=== PATIENT | female | born 1970 | race African-American/Black ===

== ENCOUNTER 2023-10-18 20:14 | Emergency (ER) | payer OTHER, SELFPAY ==
[2023-10-18 20:16] VITALS: BP 136/100
[2023-10-18 22:44] LABS: % Basophils 0.6 % (0-2); % Eosinophils 3.2 % (0-6); % Immature Granulocytes 0.1 % (0-0.5); % Lymphocytes 46.2 % (20.5-51.1); % Monocytes 9.4 % (1.7-9.3); % Neutrophils 40.5 % (42.2-75.2); Absolute Eosinophils 0.2 10^3/uL (0-0.7); Absolute Lymphocytes 3.1 10^3/uL (1.2-3.4); Absolute Monocytes 0.6 10^3/uL (0.1-0.6); Absolute Neutrophils 2.7 10^3/uL (1.4-6.5); Hemoglobin 12.5 g/dL (12.0-16.0); Mean Corp Hgb Conc. 35.7 g/dL (33.0-37.0); Mean Corpuscular Hgb 28.6 pg (27.0-31.0); Mean Corpuscular Volume 80.1 fL (81.0-99.0); Mean Platelet Volume 10.5 fL (7.4-10.4); Nucleated Red Blood Cells % 0 %; Platelet Count 247 10^3/uL (130-400); Red Blood Cell Count 4.37 10^6/uL (4.20-5.40); Red Cell Dist. Width 13.9 % (11.5-14.5); White Blood Cell Count 6.8 10^3/uL (4.8-10.8)
[2023-10-18 23:01] LABS: Blood Urea Nitrogen 23 mg/dl (7-17); Calcium 9.9 mg/dl (8.4-10.2); Carbon Dioxide 26 mmol/L (22-30); Chloride 102 mmol/L (98-107); Glucose 129 mg/dl (70-99); Potassium 4.3 mmol/L (3.5-5.1); Sodium 136 mmol/L (135-145); eGFR 49.17
--- NOTE | 2023-10-18 23:14 | ED.GENMED ---
History of Present Illness
General
Chief Complaint: Dental Problem
Source: patient
Time Seen by Provider: 10/18/23 21:22
Travel History
Have you had any contact with someone who has COVID-19?: No
Do you have any symptoms of coronavirus? Fever > 100 degrees, chills, cough, shortness of breath, sore throat, loss of taste or smell, muscle aches, or headache?: No
History of Present Illness
History of Present Illness:
53-year-old female with past medical history of hypertension, hyperlipidemia, chronic kidney disease, insulin-dependent diabetes presenting to the emergency department stating that she has been having dental issues for the better part of 10 years
but over the last few months the symptoms have gotten worse stating she has significant periodontal disease, cracked decayed to the left posterior lower jaw and dental abscesses. Patient has gone to various dentists and dental surgeons but she
states that she was told she needs at least $10,000 worth of treatment that her insurance will not cover and she does not have the money for this to pay [id number]. Patient has been on 4 separate antibiotics over the last month or so for dental
infections and she came to the ER [facility] with concern that she was septic due to having fevers (patient notes she has not had a fever greater than 100 but states that her normal temperature runs low so a temperature of 99 is a fever for her),
congestion, sore throat, shortness of breath, GI upset, fatigue, jaw pain, dental ache, difficulty eating, diminished p.o. intake. Patient states that she was doing research online and was concerned that she could potentially be septic which is [facility]
Past History
Past History
ED Past Medical History: Asthma, Fibromyalgia, HTN, Hypercholesterolemia, IDDM, Hypothyroidism, Psychiatric (PTSD, depression, Anxiety) and Other (IBS, Eczema, Glaucoma, Anemia, Hyperinsomnia, Arthritis, Retanopathy, )
ED Past Surgical History: Gynecological (Uterine polyp removed) and Other ( eye muscle repair, umbilical hernia repair, bilateral ear tube placements, wisdom teeth surgery, exploratory laparoscopy, and colonoscopy)
Social History
Tobacco: Non-smoker
Alcohol: None
Drug: None
Personal: Single
Living: with family
Employment: Employed
Family History
Family History: Other (Noncontributory)
Review of Systems
Review of Systems
All Other Systems: ROS reviewed and negative except as documented in HPI and ROS
Phy Exam
Physical Exam
Physical Exam:
GENERAL: Alert , in no apparent distress
EYE: conjunctiva clear
NECK: Supple, no significant adenopathy.
ENT: o/p clr, mmm. Dental cavities noted, cracked left posterior molar, no abscesses or fluctuance appreciated, tolerating secretions, no trismus, no drooling, no stridor
CARDIAC: Regular rate and rhythm, no murmurs
LUNGS: Clear breath sounds bilaterally, no acute respiratory distress, no wheezes/rales/rhonchi
NEUROLOGICAL: Alert and oriented
SKIN: Warm and dry, skin intact.
MUSCULOSKELETAL: well perfused.
PSYCH: Normal and appropriate interaction.
Scores
Heart Failure Risk
Heart Failure Risk Score: Not Applicable
Heart Score for Chest Pain Patients
STEMI patient?: Not applicable
Withdrawal Assessment of Alcohol
Withdrawal Assessment Completed?: Not applicable
Course
Orders/Labs/Results
Orders:
Orders
10/18/23 22:33
Basic Metabolic Panel Urgent
Complete Blood Count/With Diff Urgent
Blood Culture Q30M
ANA Source: Blood/Venous
Specimen Description:
Blood Culture Q30M
ANA Source: Blood/Venous
Specimen Description:
10/18/23 23:17
Acetaminophen with Codeine [Tylenol #3] 1 tablet PO NOW STA
10/18/23 23:26
Urinalysis Reflex To Culture Urgent
Date Specimen was Collected: 10/18/23
Time Specimen was Collected: 23:21
Urine Microscopic Reflex Cult Urgent
Urine Culture Urgent
ANA Source: U
Specimen Description:
Date Specimen was Collected: 10/18/23
Time Specimen was Collected: 23:21
Abnormal Lab Results
10/18/23 10/18/23
22:33 23:26
Hct 35.0 L %
(37.0-47.0)
MCV 80.1 L fL
(81.0-99.0)
MPV 10.5 H fL
(7.4-10.4)
Neutrophils % 40.5 L %
(42.2-75.2)
Monocytes % 9.4 H %
(1.7-9.3)
BUN 23 H mg/dl
(7-17)
Creatinine 1.3 H mg/dL
(0.6-1.0)
Glucose 129 H mg/dl
(70-99)
Leukocyte Esterase Rfl Trace A
(Negative)
Urine WBC (Reflex) 11-15 A /HPF
(0-5)
Urine Bacteria (Reflex) Few A
(Negative)
10/18/23 22:33
10/18/23 22:33
Vital Signs
Initial and Last Documented VS:
Initial Vital Signs
Temp Pulse Resp BP Pulse Ox
98.3 F 100 24 136/100 96
10/18/23 20:16 10/18/23 20:16 10/18/23 20:16 10/18/23 20:16 10/18/23 20:16
Last Documented Vital Signs
Temp Pulse Resp BP Pulse Ox
98 F 78 16 145/72 98
10/18/23 23:23 10/18/23 23:23 10/18/23 23:23 10/18/23 23:23 10/18/23 23:23
MDM/Problems Addressed
Differential Diagnosis Includes:
Chronic dental pain, I do not have concern for sepsis nor other potential infectious causes such as endocarditis
MDM/Problems Addressed:
53-year-old female presenting to the emergency department for evaluation of chronic dental pain but patient's biggest concern is the potential for sepsis given her symptoms over the last few months. Patient is afebrile here and she admits to not
having any temperatures greater than 100 so patient has not had any fevers during this time. Patient is hemodynamically stable and in no acute distress. She does have dental disease however I explained to patient that I am unable to treat this in
the emergency department and do not have dentist present here. She has been on 4 separate antibiotics include amoxicillin, Augmentin, Keflex and another antibiotic that the patient cannot remember and this was all in a very short period of time. I
do not feel prescribing the patient another antibiotic is advantageous given concern this could possibly cause C. difficile colitis or cause any other antibiotic associated complication and I explained this to the patient. I did offer the patient a
case management consultation to see if they would be able to help her with any other dentist within the area however patient states she is already contacted our dental clinic here and various other dentists and has been met with a lot of resistance.
I explained to patient that we can check lab work including blood cultures and a urinalysis as she states she had a little bit of cloudy urine on Friday but that outside of this I did not think there needed to be any further emergency department
work up.
*Pulse Oximetry
Patient hypoxic: no
*Critical Care Note
Total Time (30-74mins, 75-104mins- exclusive of procedures): Not Applicable
Data Reviewed
Review of Other/Old Records Reveals: Labs and Records
Source: patient
Patient Management
Escalation/DeEscalation of care consider admission/obs:
Patient's lab work is all reassuring. Her creatinine is stable and at her baseline. Patient's urine does have 11-15 WBCs however there is increased squamous cells and bacteria likely signifying contamination. Culture is being sent. Patient will
be contacted if there is any abnormalities on the urine culture. I provided her with information for dental follow-up. At this time I do not suspect any emergent pathologies and that patient is stable for discharge home.
ED Attending Note
-
Portions of this chart may have been created with voice recognition software.� Occasional wrong word or��sound alike� substitutions may have occurred due to the inherent limitations of voice recognition software.
Discharge Plan
Departure
Patient Disposition: Home (Routine Discharge)
Date of Disposition: 10/18/23
Time of Disposition: 23:54
Patient with high blood pressure during this ER visit?: Yes
Discharge Problem:
Dentalgia
Instructions: Dental Pain (DC)
Prescriptions:
New
acetaminophen-codeine 300-30 mg Tablet
1 tab PO Q4HPRN PRN (Reason: pain) Qty: 6 0RF
No Action
atorvastatin 40 MG tablet
40 mg PO QPM
dextroamphetamine-amphetamine 10 MG tablet
10 mg PO TID
Patient Comments:
patient last picked up on 07/28/20 #90
docusate sodium 100 MG capsule
100 mg PO BIDPRN PRN (Reason: consitpation)
albuterol sulfate 1 PUFF HFA aerosol inhaler
1 puff inhalation R Q4HPRN PRN (Reason: sob)
fluticasone propionate 1 SPRAY spray,suspension
1 spray intranasal DAILYPRN PRN (Reason: ear clogs)
multivitamin with folic acid [Tab-A-Mavis] 1 TABLET tablet
1 tab PO DAILY
calcium carbonate-vitamin D3 [Oyster Shell Calcium-Vit D3] 500 MG tablet
1 tab PO DAILY
psyllium husk [Metamucil] 0.4 GM capsule
0.4 gm PO DAILY
levothyroxine [Synthroid] 50 mcg Tablet
50 mcg PO DAILY
Patient Comments:
02/12/22-- mentioned new dose for her
lisinopril 20 mg Tablet
20 mg PO DAILY
prazosin 5 mg capsule
5 mg PO HS
Patient Comments:
02/12/22--new dose as of 01/2022 as per patient
montelukast 10 mg tablet
10 mg PO QPM
furosemide [Lasix] 20 mg Tablet
20 mg PO DAILY
gabapentin 100 mg capsule
100 mg PO TIDPRN PRN (Reason: nerve pain)
insulin lispro [Admelog SoloStar U-100 Insulin] 100 unit/mL Insulin Pen
0 sliding scale dose SC MEALS
pregabalin 50 mg capsule
50 mg PO BID
cholecalciferol (vitamin D3) [Vitamin D3] 25 mcg (1,000 unit) Tablet
25 mcg PO DAILY
Collagen 1500 Plus C 500 mg-800 mcg- 50 mg Capsule
1 cap PO DAILY
fluoxetine 40 mg capsule
40 mg PO DAILY
Patient Comments:
02/12/22---patient said she only taking 40mg daily and stopped capyta 42mg daily
Trelegy Ellipta 200-62.5-25 mcg blister with device
1 ea INHALATION R DAILY
Viibryd
10 mg PO DAILY
Myrbetriq 50 mg Tablet Extended Release 24 Hr
50 mg PO DAILY
bismuth subsalicylate 262 mg/15 mL Suspension
524 mg PO ONCE PRN (Reason: Diarrhea)
insulin degludec [Tresiba FlexTouch U-100] 100 UNIT/ML insulin pen
22 unit SQ DAILY Qty: 0 0RF
Patient Comments:
02/12/22--recently decrease to 18units
loperamide [Imodium A-D] 2 mg capsule
2 mg PO TID PRN (Reason: Diarrhea) Qty: 60 0RF
Referrals:
Angella Mccullough MD [Family Provider] -
Venice Yoon DDS [Active] - (Oral Surgery)
Interventions
Interventions:
*Risk Screen - Suicide Last Done: 10/18/23 20:16
*Neglect/Abuse Screening Last Done: 10/18/23 20:16
*Nursing Disposition Last Done: 10/19/23 00:25
Discharge Date and Time
Print Language: CAMBODIAN
[2023-10-18 23:23] VITALS: BP 145/72
[2023-10-18 23:35] LABS: Urine Albumin Negative (Neg - Trace); Urine Bilirubin Negative (Negative); Urine Character Clear (Clear); Urine Color Yellow; Urine Glucose Negative (Negative); Urine Ketone Negative (Negative); Urine Leukocyte Trace (Negative); Urine Nitrite Negative (Negative); Urine Occult Blood Negative (Negative); Urine Urobilinogen Negative (Neg - 1+)
[2023-10-19 00:42] LABS: Urine Bacteria Few (Negative); Urine Red Blood Cell 0-2 /HPF (0-2); Urine Squamous Cell 16-20 /LPF (Few)
== END 2023-10-19 01:12 | disposition home or self-care (01) ==
LOC: EMR 20:14
PROVIDERS: Physician Assistant Medical; EMERGENCY PHYSICIAN Emergency Medicine; FAMILY PHYSICIAN Family Medicine
DX: K08.89 Other specified disorders of teeth and supporting structures (principal); K02.9 Dental caries, unspecified; K03.81 Cracked tooth; I12.9 Hypertensive chronic kidney disease with stage 1 through stage 4 chronic kidney disease, or unspecified chronic kidney disease; E11.22 Type 2 diabetes mellitus with diabetic chronic kidney disease; N18.9 Chronic kidney disease, unspecified; E78.00 Pure hypercholesterolemia, unspecified; E03.9 Hypothyroidism, unspecified; F41.9 Anxiety disorder, unspecified; F32.A Depression, unspecified; F43.10 Post-traumatic stress disorder, unspecified; G89.29 Other chronic pain; H40.9 Unspecified glaucoma; J45.909 Unspecified asthma, uncomplicated; K58.9 Irritable bowel syndrome, unspecified; M19.90 Unspecified osteoarthritis, unspecified site; M79.7 Fibromyalgia; D64.9 Anemia, unspecified; Z79.4 Long term (current) use of insulin; Z88.1 Allergy status to other antibiotic agents; Z88.8 Allergy status to other drugs, medicaments and biological substances
CPT/HCPCS: 99283; 80048; 81003; 81015; 85025; 87040; 87086

== ENCOUNTER 2023-11-26 23:27 | Emergency (ER) | payer OTHER, SELFPAY ==
[2023-11-26 23:33] VITALS: BP 132/82
--- NOTE | 2023-11-27 00:14 | ED.GENMED ---
History of Present Illness
General
Chief Complaint: Urinary Symptoms
Source: patient
Exam Limitations: none
Time Seen by Provider: 11/26/23 23:42
History of Present Illness
History of Present Illness:
Patient with 2 complaints. Shortness of breath especially with exertion progressive over days but has been intermittent for a long time. This is not associated with chest pressure nausea diaphoresis. No symptoms at rest. Secondly patient is
concerned she may have a kidney stone. She passed a small clot or stone. She has had some cloudy urine. She self catheterizes. No fever. No flank or back pain.
Past History
Past History
ED Past Medical History: Asthma, Fibromyalgia, HTN, Hypercholesterolemia, IDDM, Hypothyroidism, Psychiatric (PTSD, depression, Anxiety) and Other (IBS, Eczema, Glaucoma, Anemia, Hyperinsomnia, Arthritis, Retanopathy, )
ED Past Surgical History: Gynecological (Uterine polyp removed) and Other ( eye muscle repair, umbilical hernia repair, bilateral ear tube placements, wisdom teeth surgery, exploratory laparoscopy, and colonoscopy)
Social History
Tobacco: Non-smoker
Alcohol: None
Drug: None
Personal: Single
Living: with family
Employment: Employed
Family History
Family History: Other (Noncontributory)
Review of Systems
Review of Systems
All Other Systems: Not applicable
Constitutional: Denies fever or chills
Cardiac: Denies chest pain or syncope
Phy Exam
Physical Exam
Physical Exam:
GENERAL: Alert and oriented in no apparent distress
EYE: Orbits normal.
NECK: Supple
CARDIAC: Regular rate and rhythm without any obvious murmurs.
LUNGS: Clear breath sounds,normal
ABDOMEN: Soft, without focal tenderness or distention. No CVA tenderness
NEUROLOGICAL: Alert and oriented , grossly non-focal
SKIN: Warm and dry, no rash or lesion, no discoloration, skin intact.
MUSCULOSKELETAL: No edema,no deformity.Good color
PSYCH: Normal and appropriate interaction.
Course
Orders/Labs/Results
Orders:
Orders
11/27/23 00:03
Electrocardiogram (*1) Stat
Reason for Study: Other
Other Reason for Exam: chest pain
CT Abd/pel Without Iv Or Oral Urgent
Comment:
Reason For Exam: Possible kidney stone
EKG- Treatment ONCE
IV Insert/Care/Rem.- Treatment PRN
Pulse Ox/cont/shift [RESP] Stat
Quantity: 1
11/27/23 00:10
Basic Metabolic Panel Urgent
Complete Blood Count/With Diff Urgent
D-Dimer Urgent
Troponin I Urgent
11/27/23 00:54
CXR2 [CR Chest - 2 Views ] Urgent
Comment:
Reason For Exam: SOB
11/27/23 00:55
US Periph Venous LOWER Ext Maurilio Urgent
Comment:
Reason For Exam: Short of breath/positive dimer
11/27/23 02:05
Urinalysis Reflex To Culture Urgent
Date Specimen was Collected: 11/27/23
Time Specimen was Collected: 02:04
Urine Microscopic Reflex Cult Urgent
11/27/23 02:22
NM Lung Scan Vent/perf Urgent
Comment:
Reason For Exam: sob. poss dimer. renal insuff,
11/27/23 02:29
CefTRIAXone [Rocephin] 1,000 mg IV NOW STA
Abnormal Lab Results
11/27/23 11/27/23 11/27/23
00:10 02:05 02:28
MPV 10.8 H fL
(7.4-10.4)
Absolute Monos (auto) 0.7 H 10^3/uL
(0.1-0.6)
D-Dimer 0.93 H ug/mlFEU
(0.00-0.50)
Sodium 132 L mmol/L
(135-145)
BUN 26 H mg/dl
(7-17)
Creatinine 1.6 H mg/dL
(0.6-1.0)
Glucose 234 H mg/dl
(70-99)
Leukocyte Esterase Rfl Trace A
(Negative)
Urine Bacteria (Reflex) Few A
(Negative)
POC Glucose 242 H mg/dl
(70-99)
11/27/23 00:10
11/27/23 00:10
Vital Signs
Initial and Last Documented VS:
Initial Vital Signs
Temp Pulse Resp BP Pulse Ox
97.8 F 108 16 132/82 97
11/26/23 23:33 11/26/23 23:33 11/26/23 23:33 11/26/23 23:33 11/26/23 23:33
Last Documented Vital Signs
Temp Pulse Resp BP Pulse Ox
97.8 F 78 16 150/113 97
11/26/23 23:33 11/27/23 02:26 11/27/23 02:26 11/27/23 11:21 11/27/23 11:45
MDM/Problems Addressed
Differential Diagnosis Includes:
Patient with 2 discrete complaints. Shortness of breath and shortness of breath with exertion over days and intermittently for longer. Nothing significant by exam. Lungs are clear. Heart regular rate and rhythm. No murmur. No heart failure
clinically. Doubt pulmonary emboli. Low risk. Will do D-dimer. Cardiac testing. Problem 2 is the possible kidney stone and possible UTI. Patient self catheterizes. Urinalysis pending. CT scan to evaluate for kidney stone.
*Radiology
Radiology exam reviewed: preliminary read by ED provider (Negative chest x-ray.) and radiology read reviewed (Bladder wall thickening by CT. No obstructing stone. Ultrasounds of the legs are negative.)
*Pulse Oximetry
Patient hypoxic: no
*EKG
Interpreted by ED Provider?: Yes
Interpretation: abnormal
Heart Rate: 59
Rate: bradycardiac
Rhythm: sinus
[place]: left axis deviation
Interval: normal interval
QRS Pattern: normal QRS
Ischemia: T-wave inversion
*Critical Care Note
Total Time (30-74mins, 75-104mins- exclusive of procedures): Not Applicable
Data Reviewed
Review of Other/Old Records Reveals: Labs, Records and Testing
Update Note
Update Note:
Awaiting urinalysis. Suspect positive. Will treat for UTI. As for the shortness of breath issues she has had ongoing, D-dimer is positive. I suspect that false positives. She is in no respiratory distress she is not hypoxic. She is not
tachypneic. She has negative leg ultrasounds. She does have a GFR in the 30s. We will get a nuclear scan in the morning. Low risk will discharge to follow-up from a respiratory standpoint
ED Attending Note
-
Portions of this chart may have been created with voice recognition software.� Occasional wrong word or��sound alike� substitutions may have occurred due to the inherent limitations of voice recognition software.
Discharge Plan
Departure
Patient Disposition: Home (Routine Discharge)
Date of Disposition: 11/27/23
Time of Disposition: 11:35
Patient with high blood pressure during this ER visit?: Yes
Discharge Problem:
UTI, Dyspnea with exertion, History of asthma
Instructions: Urinary Tract Infection, Adult (DC), Shortness of Breath, Adult ED, BLOOD PRESSURE
Prescriptions:
New
prednisone 20 mg tablet
20 mg PO DAILY Qty: 5 0RF
cefdinir 300 mg capsule
300 mg PO BID 7 Days Qty: 14 0RF
prednisone 5 mg tablet
5 mg PO DAILY Qty: 5 0RF
No Action
atorvastatin 40 MG tablet
40 mg PO QPM
dextroamphetamine-amphetamine 10 MG tablet
10 mg PO TID
Patient Comments:
patient last picked up on 07/28/20 #90
docusate sodium 100 MG capsule
100 mg PO BIDPRN PRN (Reason: consitpation)
albuterol sulfate 1 PUFF HFA aerosol inhaler
1 puff inhalation R Q4HPRN PRN (Reason: sob)
fluticasone propionate 1 SPRAY spray,suspension
1 spray intranasal DAILYPRN PRN (Reason: ear clogs)
multivitamin with folic acid [Tab-A-Mavis] 1 TABLET tablet
1 tab PO DAILY
calcium carbonate-vitamin D3 [Oyster Shell Calcium-Vit D3] 500 MG tablet
1 tab PO DAILY
psyllium husk [Metamucil] 0.4 GM capsule
0.4 gm PO DAILY
levothyroxine [Synthroid] 50 mcg Tablet
50 mcg PO DAILY
Patient Comments:
02/12/22-- mentioned new dose for her
lisinopril 20 mg Tablet
20 mg PO DAILY
prazosin 5 mg capsule
5 mg PO HS
Patient Comments:
02/12/22--new dose as of 01/2022 as per patient
montelukast 10 mg tablet
10 mg PO QPM
furosemide [Lasix] 20 mg Tablet
20 mg PO DAILY
gabapentin 100 mg capsule
100 mg PO TIDPRN PRN (Reason: nerve pain)
insulin lispro [Admelog SoloStar U-100 Insulin] 100 unit/mL Insulin Pen
0 sliding scale dose SC MEALS
pregabalin 50 mg capsule
50 mg PO BID
cholecalciferol (vitamin D3) [Vitamin D3] 25 mcg (1,000 unit) Tablet
25 mcg PO DAILY
Collagen 1500 Plus C 500 mg-800 mcg- 50 mg Capsule
1 cap PO DAILY
fluoxetine 40 mg capsule
40 mg PO DAILY
Patient Comments:
02/12/22---patient said she only taking 40mg daily and stopped capyta 42mg daily
Trelegy Ellipta 200-62.5-25 mcg blister with device
1 ea INHALATION R DAILY
Viibryd
10 mg PO DAILY
Myrbetriq 50 mg Tablet Extended Release 24 Hr
50 mg PO DAILY
bismuth subsalicylate 262 mg/15 mL Suspension
524 mg PO ONCE PRN (Reason: Diarrhea)
insulin degludec [Tresiba FlexTouch U-100] 100 UNIT/ML insulin pen
22 unit SQ DAILY Qty: 0 0RF
Patient Comments:
02/12/22--recently decrease to 18units
loperamide [Imodium A-D] 2 mg capsule
2 mg PO TID PRN (Reason: Diarrhea) Qty: 60 0RF
acetaminophen-codeine 300-30 mg Tablet
1 tab PO Q4HPRN PRN (Reason: pain) Qty: 6 0RF
Referrals:
Karrie Gerardo CRNP [Family Provider] - Follow up in 2-3 days
Activity Restrictions/Additional Instructions:
Antibiotics as directed for UTI. This can be started in 24 hours
Prednisone as directed
Close follow-up with your primary physician and maintenance groundman for your shortness of breath
Your prescription was sent to your pharmacy
VQ scan shows no sign of blood clot in the lungs
Interventions
Interventions:
*Risk Screen - Suicide Last Done: 11/27/23 00:12
*General Assessment Last Done: 11/26/23 23:33
*Neglect/Abuse Screening Last Done: 11/27/23 00:12
ED- Fall Risk Assessment Last Done: 11/27/23 12:40
*Nursing Disposition Last Done: 11/27/23 12:40
ED-Female Genitourinary Assessment Last Done: 11/27/23 00:12
Discharge Date and Time
Discharge Date/Time: 11/27/23 12:41
Print Language: GIBRALTARIAN
[2023-11-27 00:33] LABS: Blood Urea Nitrogen 26 mg/dl (7-17); Calcium 10.1 mg/dl (8.4-10.2); Carbon Dioxide 27 mmol/L (22-30); Chloride 98 mmol/L (98-107); Glucose 234 mg/dl (70-99); Potassium 4.5 mmol/L (3.5-5.1); Sodium 132 mmol/L (135-145); eGFR 38.33
[2023-11-27 00:39] LABS: D-Dimer 0.93 ug/mlFEU (0.00-0.50)
[2023-11-27 00:45] VITALS: BP 142/94
[2023-11-27 00:51] LABS: % Basophils 0.6 % (0-2); % Eosinophils 3.2 % (0-6); % Immature Granulocytes 0.4 % (0-0.5); % Lymphocytes 33.9 % (20.5-51.1); % Monocytes 9.3 % (1.7-9.3); % Neutrophils 52.6 % (42.2-75.2); Absolute Eosinophils 0.2 10^3/uL (0-0.7); Absolute Lymphocytes 2.4 10^3/uL (1.2-3.4); Absolute Monocytes 0.7 10^3/uL (0.1-0.6); Absolute Neutrophils 3.8 10^3/uL (1.4-6.5); Hematocrit 37.5 % (37.0-47.0); Hemoglobin 13.2 g/dL (12.0-16.0); Mean Corp Hgb Conc. 35.2 g/dL (33.0-37.0); Mean Corpuscular Hgb 29.1 pg (27.0-31.0); Mean Corpuscular Volume 82.6 fL (81.0-99.0); Mean Platelet Volume 10.8 fL (7.4-10.4); Nucleated Red Blood Cells % 0 %; Platelet Count 241 10^3/uL (130-400); Red Blood Cell Count 4.54 10^6/uL (4.20-5.40); Red Cell Dist. Width 13.7 % (11.5-14.5); White Blood Cell Count 7.2 10^3/uL (4.8-10.8)
[2023-11-27 00:53] LABS: Troponin I 0.017 ng/ml
[2023-11-27 02:11] LABS: Urine Albumin Negative (Neg - Trace); Urine Bilirubin Negative (Negative); Urine Character Clear (Clear); Urine Color Yellow; Urine Glucose Negative (Negative); Urine Ketone Negative (Negative); Urine Leukocyte Trace (Negative); Urine Nitrite Negative (Negative); Urine Occult Blood Negative (Negative); Urine Specific Gravity 1.015 (<1.030); Urine Urobilinogen Negative (Neg - 1+)
[2023-11-27 02:26] VITALS: BP 138/88
[2023-11-27 02:30] LABS: Glucose - Point of Care 242 mg/dl (70-99)
[2023-11-27 03:21] LABS: Urine Bacteria Few (Negative); Urine Red Blood Cell 0-2 /HPF (0-2); Urine Squamous Cell 0-2 /LPF (Few)
[2023-11-27] MEDS: ROCEPHIN 1000 MG IV (03:21)
[2023-11-27 11:21] VITALS: BP 150/113
== END 2023-11-27 12:41 | disposition home or self-care (01) ==
LOC: EMR 23:27
PROVIDERS: EMERGENCY PHYSICIAN Emergency Medicine; FAMILY PHYSICIAN Nurse Practitioner Family
DX: N39.0 Urinary tract infection, site not specified (principal); R06.00 Dyspnea, unspecified; J45.909 Unspecified asthma, uncomplicated; M79.7 Fibromyalgia; I10 Essential (primary) hypertension; E78.00 Pure hypercholesterolemia, unspecified; E11.9 Type 2 diabetes mellitus without complications; E03.9 Hypothyroidism, unspecified; F43.10 Post-traumatic stress disorder, unspecified; F41.8 Other specified anxiety disorders; K58.9 Irritable bowel syndrome, unspecified; H40.9 Unspecified glaucoma; M19.90 Unspecified osteoarthritis, unspecified site; Z87.440 Personal history of urinary (tract) infections
CPT/HCPCS: 99284; 71046; 74176; 78582; 80048; 81003; 81015; 82962; 84484; 85025; 85379; 93005; 93970; A9540; A9567

== ENCOUNTER → 2024-09-13 19:02 | Outpatient (REF) | payer OTHER, SELFPAY | LOC: RAD 19:02 | PROVIDERS: ATTENDING PHYSICIAN Nurse Practitioner Family | DX: M54.50 Low back pain, unspecified (principal) | CPT/HCPCS: 72110 ==

== ENCOUNTER 2024-12-19 23:27 | Emergency (ER) | payer OTHER, SELFPAY ==
[2024-12-19 23:28] VITALS: BP 137/87
[2024-12-19 23:46] LABS: Hematocrit 41.7 % (37.0-47.0); Hemoglobin 14.4 g/dL (12.0-16.0); Mean Corp Hgb Conc. 34.5 g/dL (33.0-37.0); Mean Corpuscular Volume 81.8 fL (81.0-99.0); Nucleated Red Blood Cells % 0 %; Platelet Count 266 10^3/uL (130-400); Red Cell Dist. Width 13.3 % (11.5-14.5)
[2024-12-20 00:05] LABS: ALT (SGPT) 29 U/L (0-35); AST (SGOT) 31 U/L (14-36); Albumin 4.6 g/dl (3.5-5.0); Alkaline Phosphatase 132 U/L (38-126); Blood Urea Nitrogen 18 mg/dl (7-17); Calcium 11.2 mg/dl (8.4-10.2); Carbon Dioxide 26 mmol/L (22-30); Chloride 102 mmol/L (98-107); Glucose 152 mg/dl (70-99); Potassium 5.2 mmol/L (3.5-5.1); Sodium 133 mmol/L (135-145); Total Protein 7.9 g/dl (6.3-8.2); eGFR 48.87
[2024-12-20 03:53] VITALS: BP 148/94
--- NOTE | 2024-12-20 03:53 | ED.GENMED ---
History of Present Illness
General
Chief Complaint: Dehydration Symptoms
Source: patient and ambulance crew
Exam Limitations: none
Time Seen by Provider: 12/20/24 03:31
Nursing documentation reviewed up to this point in time: agreed with
History of Present Illness
History of Present Illness:
This is a 54-year-old woman with history of insulin-dependent diabetes, hypertension, fibromyalgia, asthma, hypothyroidism, PTSD/anxiety, IBS, chronic kidney disease.
She presents via EMS after developing what she states is 'dehydration symptoms' while shopping at a local grocery store. She was about to check out when she began to feel lightheaded, jittery, felt that she was going to pass out. She states
similar episodes happen generally once per month and when she is at home she just lies down and drinks water and symptoms resolved. She was able to sit down but unable to lie flat in the grocery store. She was given water with improvement in
symptoms but continued with mild lightheadedness, jitteriness thus EMS was notified. Upon EMS arrival patient noted to be hypotensive at 80/50 and blood sugar borderline low at 70. She denies chest pain, no cough no shortness of breath. Upon
arrival to the ED she was given juice to drink and symptoms completely resolved. She has had no return of symptoms.
No recent change in medications.
She does have a CGM at home but has not been using this. She admits that her blood sugars have been quite erratic.
Blood pressure 137/87 upon arrival to the ED.
Past History
Past History
ED Past Medical History: Asthma, Fibromyalgia, HTN, Hypercholesterolemia, IDDM, Hypothyroidism, Psychiatric (PTSD, depression, Anxiety) and Other (IBS, Eczema, Glaucoma, Anemia, Hyperinsomnia, Arthritis, Retanopathy, )
ED Past Surgical History: Gynecological (Uterine polyp removed) and Other ( eye muscle repair, umbilical hernia repair, bilateral ear tube placements, wisdom teeth surgery, exploratory laparoscopy, and colonoscopy)
Social History
Tobacco: Non-smoker
Alcohol: None
Drug: None
Personal: Single
Living: with family
Employment: Employed
Family History
Family History: Other (Noncontributory)
Phy Exam
Physical Exam
Physical Exam:
GENERAL: Alert , in no apparent distress 54-year-old woman appears somewhat older than stated age, she is bright and alert, pleasant, easily communicative and in no acute distress.
EYE: anicteric
NECK: Supple, nontender, no meningismus, no significant adenopathy.
ENT: Facemask in place.
CARDIAC: Regular rate and rhythm. no murmur.
LUNGS: Clear breath sounds bilaterally, no acute respiratory distress, no wheezes/rales/rhonchi
ABDOMEN: Soft, nondistended, without focal tenderness,normoactive BS.
NEUROLOGICAL: Alert and oriented x3, no focal neuro deficits. Gait is steady.
SKIN: Warm and dry, normal color, skin intact. No rash.
MUSCULOSKELETAL: No C/C/E. peripheral pulses are full and equal b/l. No palpable tenderness.
PSYCH: Normal and appropriate interaction.
Course
Orders/Labs/Results
Orders:
Orders
12/19/24 23:37
Complete Blood Count/With Diff Urgent
Comprehensive Metabolic Panel Urgent
12/20/24 03:33
Electrocardiogram (*1) Urgent
Reason for Study: Fatigue / Weakness
EKG- Treatment ONCE
Abnormal Lab Results
12/19/24
23:37
MPV 10.5 H fL
(7.4-10.4)
Sodium 133 L mmol/L
(135-145)
Potassium 5.2 H mmol/L
(3.5-5.1)
BUN 18 H mg/dl
(7-17)
Creatinine 1.3 H mg/dL
(0.6-1.0)
Glucose 152 H mg/dl
(70-99)
Calcium 11.2 H mg/dl
(8.4-10.2)
Alkaline Phosphatase 132 H U/L
(38-126)
12/19/24 23:37
12/19/24 23:37
Vital Signs
Initial and Last Documented VS:
Initial Vital Signs
Temp Pulse Resp BP Pulse Ox
98.3 F 83 16 137/87 99
12/19/24 23:28 12/19/24 23:28 12/19/24 23:28 12/19/24 23:28 12/19/24 23:28
Last Documented Vital Signs
Temp Pulse Resp BP Pulse Ox
98.3 F 78 14 152/89 99
12/19/24 23:28 12/20/24 04:00 12/20/24 04:00 12/20/24 04:00 12/20/24 04:09
MDM/Problems Addressed
Differential Diagnosis Includes:
Concern for orthostasis, vasovagal episode, arrhythmia, hypoglycemia.
Symptoms have promptly resolved after fluids and consuming juice.
Highly suspect an element of hypoglycemia.
Labs are unremarkable save for minimally elevated potassium of 5.2. Creatinine of 1.3 at her baseline. Glucose 155. Normal CBC.
She remains normotensive.
Due to mild hyperkalemia, will check EKG.
Patient is eager to be discharged to home.
Chronic conditions affecting care: DM, HTN, Psychiatric illness and Kidney disease
Acute Exacerbation and/or Progression of Chronic Illness: DM and Other (Concern for orthostatic hypotension)
*Pulse Oximetry
SaO2: 99
Oxygen Mode of Delivery: Room air
Patient hypoxic: no
*EKG
Interpreted by ED Provider?: Yes
Interpretation: normal
Comparison EKG: no changes (Unchanged from previous November 27, 2023)
Rate: normal
Rhythm: sinus
Momence: normal axis
Interval: normal interval
QRS Pattern: normal QRS
Ischemia: no ischemia
*Chlorine Plant Operator Interpretation
Rate: normal
Interpretation: normal
Rhythm: sinus
*Critical Care Note
Total Time (30-74mins, 75-104mins- exclusive of procedures): Not Applicable
ED Attending Note
-
Portions of this chart may have been created with voice recognition software.� Occasional wrong word or��sound alike� substitutions may have occurred due to the inherent limitations of voice recognition software.
Discharge Plan
Departure
Patient Disposition: Home (Routine Discharge)
Date of Disposition: 12/20/24
Time of Disposition: 03:53
Patient with high blood pressure during this ER visit?: No
Condition: Good
Discharge Problem:
Near syncope, Hypoglycemia
Instructions: Low blood sugar in people with diabetes, Near Fainting (DC)
Prescriptions:
No Action
atorvastatin 40 MG tablet
40 mg PO QPM
dextroamphetamine-amphetamine 10 MG tablet
10 mg PO TID
albuterol sulfate 1 PUFF HFA aerosol inhaler
1 puff inhalation R Q4HPRN PRN (Reason: sob)
calcium carbonate-vitamin D3 [Oyster Shell Calcium-Vit D3] 500 MG tablet
1 tab PO DAILY
montelukast 10 mg tablet
10 mg PO DAILY
furosemide [Lasix] 20 mg Tablet
20 mg PO DAILYPRN PRN (Reason: fluid retention/swelling)
gabapentin 100 mg capsule
100 mg PO DAILYPRN PRN (Reason: nerve pain)
insulin lispro [Admelog SoloStar U-100 Insulin] 100 unit/mL Insulin Pen
0 sliding scale dose SC MEALS
pregabalin 50 mg capsule
50 mg PO BID
Trelegy Ellipta 200-62.5-25 mcg blister with device
1 ea INHALATION R DAILY
multivitamin Tablet
1 tab PO DAILY
tolterodine 4 mg Capsule,Extended Release 24hr
4 mg PO DAILY
sertraline 100 mg Tablet
200 mg PO DAILY
levothyroxine 75 mcg Tablet
75 mcg PO DAILY
methenamine hippurate 1 gram Tablet
1 g PO BID
Patient Comments:
pt usually takes daily, supposed to be BID
lisinopril 10 mg Tablet
10 mg PO DAILY
lansoprazole 30 mg Capsule,Delayed Release(Dr/Ec)
30 mg PO DAILY
dicyclomine 10 mg Capsule
10 mg PO QID PRN (Reason: IBS)
insulin glargine [Lantus Solostar U-100 Insulin] 100 unit/mL (3 mL) Insulin Pen
18 unit SC DAILY
glucosamine HCl 1,500 mg Tablet
1,500 mg PO DAILY
Benefiber (guar gum)
1 tab PO DAILY
Probiotic
1 cap PO DAILY
biotin
1 tab PO DAILY
Referrals:
UNKNOWN - PT DOES,NOT KNOW [Family Provider]
Activity Restrictions/Additional Instructions:
Restart your continuous glucose monitor.
Stay well-hydrated on a daily basis.
Follow-up with your primary care physician this week for recheck.
Interventions
Interventions:
*Risk Screen - Suicide Last Done: 12/19/24 23:28
*General Assessment Last Done: 12/19/24 23:28
*Neglect/Abuse Screening Last Done: 12/19/24 23:28
*ED- Fall Risk Assessment Last Done: 12/20/24 03:55
*Nursing Disposition Last Done: 12/20/24 04:17
ED- Cardiac Assessment Last Done: 12/20/24 04:12
ED- Neurological Assessment Last Done: 12/20/24 04:12
ED- Pulmonary Assessment Last Done: 12/20/24 04:12
Discharge Date and Time
Discharge Date/Time: 12/20/24 04:17
Print Language: BURMESE
[2024-12-20 03:54] VITALS: BMI 25.9
[2024-12-20 04:00] VITALS: BP 152/89
== END 2024-12-20 04:17 | disposition home or self-care (01) ==
LOC: EMR 23:27
PROVIDERS: EMERGENCY PHYSICIAN Emergency Medicine
DX: E10.649 Type 1 diabetes mellitus with hypoglycemia without coma (principal); E16.A1 Hypoglycemia level 1; E87.5 Hyperkalemia; E10.319 Type 1 diabetes mellitus with unspecified diabetic retinopathy without macular edema; E10.39 Type 1 diabetes mellitus with other diabetic ophthalmic complication; H40.9 Unspecified glaucoma; H42 Glaucoma in diseases classified elsewhere; E10.22 Type 1 diabetes mellitus with diabetic chronic kidney disease; I12.9 Hypertensive chronic kidney disease with stage 1 through stage 4 chronic kidney disease, or unspecified chronic kidney disease; N18.9 Chronic kidney disease, unspecified; E78.00 Pure hypercholesterolemia, unspecified; J45.909 Unspecified asthma, uncomplicated; E03.9 Hypothyroidism, unspecified; M79.7 Fibromyalgia; F43.10 Post-traumatic stress disorder, unspecified; F41.9 Anxiety disorder, unspecified; F32.A Depression, unspecified; K58.9 Irritable bowel syndrome, unspecified; M19.90 Unspecified osteoarthritis, unspecified site; L30.9 Dermatitis, unspecified; Z79.4 Long term (current) use of insulin
CPT/HCPCS: 99284; 80053; 85025; 93005

== ENCOUNTER → 2025-04-13 10:24 | Outpatient (REF) | payer OTHER, SELFPAY | LOC: WDC 10:24 | PROVIDERS: ATTENDING PHYSICIAN Nurse Practitioner Family | DX: N64.4 Mastodynia (principal) | CPT/HCPCS: 77062; 77066 ==

== ENCOUNTER → 2025-04-16 10:26 | Outpatient (REF) | payer OTHER, SELFPAY | LOC: RAD 10:26 | PROVIDERS: ATTENDING PHYSICIAN Nurse Practitioner Family | DX: M54.50 Low back pain, unspecified (principal) | CPT/HCPCS: 76700 ==